=== PATIENT | female | born 1995 | race Caucasian/White ===

== ENCOUNTER → 2017-07-31 | Outpatient (CLI) | payer OTHER ==
[~2017-07-31] MED LIST: ISOVUE-370 76% 100ML VIAL (Q9967) As Ordered ONE
--- NOTE | 2017-07-31 16:06 | REP ---
Hysterosalpingography: Eight views: History: Infertility. Bicornuate uterus suspected. 46 seconds of fluoroscopy time was utilized. Eight fluoroscopic spot radiographs were obtained. Contrast is injected into the endometrium by the referring trampoline team coach. Findings: Films demonstrate opacification of a deep septate endometrial cavity consistent with bicornuate uterus. No filling defect is seen in the endometrium. Bilateral tubal patency is documented. No tubal abnormality is seen. Impression: Septate endometrial morphology. Bilateral tubal patency. Signed by Bimal Mcfarland MD 07/31/2017 05:03 P
== END ==
LOC: M RADPRO 11:37
PROVIDERS: ATTEND Obstetrics & Gynecology
DX: Q51.2 Other doubling of uterus (principal)
CPT/HCPCS: 58340; 74740; Q9967

== ENCOUNTER 2018-09-16 07:25 | Inpatient (IN) | payer OTHER ==
[2018-09-16 09:49] LABS: HEMATOCRIT 35.2 % (36.0-47.0); HEMOGLOBIN 11.8 g/dl (12.0-15.5); MEAN CORPUSCULAR HEMOGLOBIN 28.4 pg (27.0-33.0); MEAN CORPUSCULAR HGB CONC 33.5 g/dl (32.0-36.5); MEAN CORPUSCULAR VOLUME 84.8 fl (80.0-96.0); PLATELET COUNT, AUTOMATED 412 10^3/uL (150-450); RED BLOOD COUNT 4.15 10^6/uL (4.00-5.40); RED CELL DISTRIBUTION WIDTH 13.4 % (11.5-14.5); WHITE BLOOD COUNT 16.7 10^3/uL (4.0-10.0)
[2018-09-16] MEDS: LACTATED RINGER'S 1000 ML IV (10:06)
[2018-09-16] MEDS ORDERED: FENTANYL 2MCG/ML ROPIVACAINE 0.2% IN 0.9% NACL 200ML IVBAG As Ordered (12:39)
[2018-09-16] MEDS: FENTANYL/ROPIVACAINE/NACL BAG 200 ML EPIDURAL (13:19)
[2018-09-16] MEDS: LR 1,000 ML IV ×2 (13:53→15:20)
[2018-09-16] MEDS ORDERED: EPIDURAL/PCA KEYS XX (14:00)
[2018-09-16] MEDS ORDERED: NALOXONE INJ 0.4 MG/1 ML VIAL (J2310) IV (14:00)
[2018-09-16] MEDS ORDERED: diphenhydrAMINE INJ 50MG/ML VIAL (J1200) IV (14:00)
[2018-09-16] MEDS ORDERED: ONDANSETRON 4MG/2ML VIAL (J2405) IV (14:00)
[2018-09-16] MEDS ORDERED: ePHEDrine SULFATE 25 MG/5 ML(5MG/ML) SYRINGE IV (14:00)
[2018-09-16] MEDS ORDERED: REFRIGERATOR IV KEYS XX (14:00)
[2018-09-16] MEDS ORDERED: EPIDURAL COMMENT XX (14:00)
[2018-09-16] MEDS ORDERED: LACTATED RINGER'S 1000 ML IV (14:00)
[2018-09-16] MEDS ORDERED: OXYTOCIN 30 UNITS IN 0.9% NaCl 500ML IV BAG (J2590) As Ordered (17:00)
[2018-09-16] MEDS: OXYTOCIN DRIP 30 UNITS in APPROPRIATE DILUENT 1 EA IV (20:55)
[2018-09-16] MEDS ORDERED: METHYLERGONOVINE MALEATE 0.2 MG TAB PO (21:00)
[2018-09-16] MEDS ORDERED: DOCUSATE SODIUM 100 MG CAP PO (21:00)
[2018-09-16] MEDS ORDERED: MEASLES,MUMPS,RUBELLA VACCINE INJ (MMR-II) (90707) SC (21:00)
[2018-09-16] MEDS ORDERED: PROMETHAZINE 25 MG TAB PO (21:00)
[2018-09-16] MEDS: IBUPROFEN 800 MG TAB PO (21:24)
[2018-09-16] MEDS: ACETAMINOPHEN 500 MG TAB PO (22:54)
[2018-09-16] MEDS: DIBUCAINE 1% OINTMENT 30GM TOP (22:54)
[2018-09-17] MEDS: PRENATAL VITAMINS CHEWABLE TABLET PO (07:24)
[2018-09-17] MEDS: IBUPROFEN 800 MG TAB PO ×2 (07:25→16:45)
[2018-09-17] MEDS: DIBUCAINE 1% OINTMENT 30GM TOP (11:59)
[2018-09-17] MEDS: ACETAMINOPHEN 500 MG TAB PO ×2 (11:59→20:06)
[2018-09-18] MEDS: ACETAMINOPHEN 500 MG TAB PO ×2 (04:44→11:09)
[2018-09-18] MEDS: PRENATAL VITAMINS CHEWABLE TABLET PO (08:35)
[2018-09-18] MEDS: IBUPROFEN 800 MG TAB PO (08:39)
[2018-09-18] MEDS: DIBUCAINE 1% OINTMENT 30GM TOP (12:28)
== END 2018-09-18 13:30 | disposition home or self-care (01) | DRG 807 ==
LOC: M LDO 07:25 → M LDI 08:26 → M OBS 21:34
PROVIDERS: Obstetrics & Gynecology
PROC: 10D17Z9 Manual Extraction of Products of Conception, Retained, Via Natural or Artificial Opening (ICD-10-PCS; principal; 2018-09-16)
PROC: 0KQM0ZZ Repair Perineum Muscle, Open Approach (ICD-10-PCS; 2018-09-16)
PROC: 10D07Z6 Extraction of Products of Conception, Vacuum, Via Natural or Artificial Opening (ICD-10-PCS; 2018-09-16)
DX: O34.593 Maternal care for other abnormalities of gravid uterus, third trimester (principal); Z37.0 Single live birth; Q51.20 Other doubling of uterus, unspecified; Z3A.38 38 weeks gestation of pregnancy; O70.1 Second degree perineal laceration during delivery

== ENCOUNTER → 2019-09-19 | Outpatient (REF) | payer OTHER ==
[~2019-09-19] MED LIST changes: +COLA100C5 PO; +DIBU10OI TOP; +IBUP-1022 PO; -ISOVUE-370 76% 100ML VIAL (Q9967) As Ordered ONE; +MAPA500T2 PO; +PRENTAB9 PO
== END ==
LOC: M SFHCLERA 12:05
PROVIDERS: ATTEND Physician Assistant
DX: J02.9 Acute pharyngitis, unspecified (principal)